=== PATIENT | male | born 1960 | race American Indian/Alaskan Native ===

== ENCOUNTER 2020-03-22 18:12 | Emergency (ER) | payer OTHER ==
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
[2020-03-22] MEDS ORDERED: CYCLOBENZAPRINE 10 MG TAB PO ONE (23:09)
[2020-03-22] MEDS ORDERED: ACETAMINOPHEN 500 MG TAB PO ONE (23:09)
[2020-03-22] MEDS ORDERED: IBUPROFEN 600 MG TAB PO ONE (23:09)
[2020-03-23 01:44] VITALS: BP 137/82
== END 2020-03-22 23:31 | disposition home or self-care (01) ==
LOC: ED 18:12
DX: S13.9XXA Sprain of joints and ligaments of unspecified parts of neck, initial encounter (principal); M62.830 Muscle spasm of back; G44.319 Acute post-traumatic headache, not intractable; Z79.1 Long term (current) use of non-steroidal anti-inflammatories (NSAID); Z79.899 Other long term (current) drug therapy; V49.49XA Driver injured in collision with other motor vehicles in traffic accident, initial encounter; Y93.89 Activity, other specified; Y92.410 Unspecified street and highway as the place of occurrence of the external cause; Y99.8 Other external cause status
CPT/HCPCS: 70450; 72125